=== PATIENT | female | born 1980 | race Hispanic/Latino ===

== ENCOUNTER 2019-04-08 08:52 | Outpatient (CLI) | payer MEDICAID ==
--- NOTE | 2019-04-08 11:28 | ULT ---
ULTRASOUND ABDOMEN: Date: 04/08/19 HISTORY: Right flank pain. FINDINGS: The liver, gallbladder, pancreas, kidneys, and visualized portions of the aorta and IVC appear normal . The spleen is normal in size, measuring 11.4 x 4.0 cm, with a 1.2 cm cyst. No free fluid is seen. T he common duct measures 3.0 mm in diameter. IMPRESSION: Splenic cyst. POS: OFF
--- NOTE | 2019-04-08 12:19 | ULT ---
TRANSABDOMINAL AND TRANSVAGINAL PELVIC ULTRASOUND WITH GARCÍA SCALE AND COLOR FLOW AND SPECTRAL DOPPLER IMAGING: Date: 04/08/19 HISTORY: Pelvic pain. FINDINGS: The uterus measures 7.2 x 5.1 x 3.4 cm, without mass or endometrial fluid. The endometrium measures 4 .0 mm in thickness. There is a 4.0 x 5.0 x 2.0 mm cyst in the endometrium. The right ovary measures 2.4 x 1.3 x 1.1 cm. The left ovary measures 3.1 x 2.1 x 1.6 cm. There is a 1 .6 cm cyst in the left ovary. Flow is demonstrated to both ovaries. No evidence of free fluid seen in the cul-de-sac. IMPRESSION: Small cyst in endometrium. Clinically correlate for with serum beta HCG levels. POS: OFF
== END 2019-04-08 08:53 | disposition home or self-care (01) ==
LOC: SCSULT 08:52
PROVIDERS: ATTEND Nurse Practitioner Family
DX: R10.2 Pelvic and perineal pain (principal); N85.8 Other specified noninflammatory disorders of uterus; D73.4 Cyst of spleen
CPT/HCPCS: 76700; 76856